=== PATIENT | female | born 1945 ===

== ENCOUNTER 2016-11-16 14:28 | Emergency (ER) | payer OTHER, MEDICARE ==
[2016-11-16 14:30] VITALS: BMI 36.9
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
[2016-11-16 16:44] VITALS: BP 195/75; PULSE 64; RESP 14; TEMP 97.8
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
[2016-11-16 17:19] VITALS: O2SAT 97
== END 2016-11-16 16:47 | disposition home or self-care (01) ==
LOC: C.ER 14:28
DX: S70.01XA Contusion of right hip, initial encounter (principal); V49.9XXA Car occupant (driver) (passenger) injured in unspecified traffic accident, initial encounter